=== PATIENT | female | born 1960 | race African-American/Black ===

== ENCOUNTER 2016-11-23 18:25 | Inpatient (IN) | payer MEDICARE, MEDICAID ==
[2016-11-23 18:36] VITALS: BP 123/83
--- NOTE | 2016-11-23 21:20 | History & Physical ---
ADMIT DATE: 11/23/2016 HISTORY OF PRESENT ILLNESS: This patient was admitted today. A 56-year-old female patient. The patient came in from [facility], history of dehydration, anorexia, refusal to eat, adult failure to thrive. The patient had acute kidney injury, which was treated. The patient was in catatonic state and schizophrenia, and also has a history of hypertension, was admitted. Dr. Ramos kindly asked me to see this patient for a history and physical. Difficult to obtain any history from the patient, all the data were obtained from the previous charts. The patient's vital signs seem to be stable. PAST MEDICAL HISTORY: As noted above, history of hypertension, adult failure to thrive patient. PHYSICAL EXAMINATION: HEENT: Normocephalic. Pupils equal, reactive to light. NECK: Supple, nontender. LUNGS: Clear. CARDIOVASCULAR SYSTEM: S1, S2 heard. ABDOMEN: Soft. Bowel sounds are heard. CENTRAL NERVOUS SYSTEM: Grossly normal. DIAGNOSES: Acute psychosis, schizoaffective disorder, catatonic state, medical problems included status acute kidney injury, history of hypertension, and adult failure to thrive. I will follow along with Dr. Fuentes and we will labs. JOB# [id number]
[2016-11-23] MEDS ORDERED: Magnesium Hydroxide (MOM) 30 mL UDC PO PRN (21:27)
--- NOTE | 2016-11-24 04:34 | Admit Criteria Form ---
Admit Criteria Forms - Admit Criteria Diagnosis: PSYCHIATRIC DISORDERS (Place 'X' for any and all applicable criteria): Ongoing inpatient care may be needed for 1 or more of the following(1)(2)(3)(4)( 6)(7)(8): [ ]I. Danger to self or others not manageable at lower level of care. [ ]II. Grave disability (eg, inability to perform self care necessary at lower level of care) [ ]III. Agitation or inappropriate behavior interfering with care for primary condition (eg, attempting to discontinue lines or drains prematurely, unable to cooperate with respiratory care) [X]IV. Severe disability or disorder indicated by ALL of the following: [X]a) Severe behavioral health disorder-related symptoms or condition indicated by 1 or more of the following: [ ]i) Severe problem with cognition, memory, judgment, or impulse control [X]ii) Severe clinical manifestations (eg, hallucinations, delusions, other acute psychotic symptoms, zenon, extreme agitation or anxiety) [X]b) Patient management at lower level of care is not feasible until acute intervention or modification is initiated. Extended stay beyond goal length of stay for the primary condition may be needed until ALLof the following are present(1)(2)(3)(4)(7)81)(23): [ ]a) Danger to self or others is absent or manageable at lower level of care [ ]b) Behavior crisis management, including physical or chemical restraints, is required and is not available at a lower level of care. [ ]c) Behavioral symptoms (e.g., agitation, somnolence, inappropriate behavior) are present, and are not manageable at a lower level of care. [ ]d) Patient cannot understand follow-up treatment and crisis plan. [ ]e) Provider and supports are sufficiently available at lower level of care. [ ]f) Patient can participate (e.g., verify absence of plan for harm) and is in needed of monitoring. The original [facility] content created by [facility] has been revised. The portions of the content which have been revised are identified through the use of italic text or in bold, and [facility] has neither reviewed nor approved the modified material. All other unmodified content is copyright [facility]. Please see references footnoted in the original [facility] edition 2017
[2016-11-24 07:28] LABS: ALB/GLOB RATIO 1.6 (1.0-1.8); ALKALINE PHOSPHATASE 59 U/L (34-104); ANION GAP 5.5 (7.0-16.0); BILIRUBIN,TOTAL 0.6 mg/dL (0.3-1.0); BUN - UREA NITROGEN 17 mg/dL (7-25); BUN/CREATININE RATIO 21.3; CALCIUM SERUM 10.2 mg/dL (8.6-10.3); CARBON DIOXIDE 26.2 mEq/L (21.0-31.0); CHLORIDE 112 mEq/L (98-107); CREATININE - SERUM 0.8 mg/dL (0.6-1.2); GLUCOSE 103 mg/dL (70-105); POTASSIUM SERUM 3.7 mEq/L (3.5-5.1); SGOT 25 U/L (13-39); SGPT/ALT 55 U/L (7-52); SODIUM SERUM 140 mEq/L (136-145)
--- NOTE | 2016-11-24 09:57 | Diagnostic Imaging Report ---
Portable chest x-ray HISTORY: Cough The heart size is difficult to assess with portable technique, but appears generous. No acute focal pulmonary processes. No evidence of pleural fluid. IMPRESSION: No acute pulmonary processes
--- NOTE | 2016-11-24 21:56 | Psychosocial Evaluation ---
DATE OF SERVICE: 11/24/2016 CHIEF COMPLAINT: "I have been depressed." HISTORY OF PRESENT ILLNESS: The patient is a 56-year-old female who was transferred to the hospital from Hospital because of increased depression and because of suicidal ideations. The patient has been feeling severely depressed and has been feeling hopeless and helpless. The patient also has been having lack of motivations and lack of energy. The patient also said that she has been hearing voices telling her different things. She also has been interacting minimally with peers and with others. Also, during interview, the patient seems to be distracted and seems to be responding to stimuli. The patient admitted that she has been hearing voices and she has been having difficulty with her sleep and she has lacking of energy. She also has been feeling hopeless and helpless. PAST PSYCHIATRIC HISTORY: The patient said that she has history of multiple psychiatric hospitalizations for treatment of depression, but also the patient seems to have a history of schizophrenia. PAST MEDICAL HISTORY: The patient said that she has hypertension. FAMILY HISTORY: The patient denies. SOCIAL HISTORY: The patient said that she lives with her boyfriend. She denies any alcohol or any street drug use. The patient said that she has 3 children. She said that she lives with her boyfriend and they are getting along with no problems. She denies any history of abuse or legal issues. ALLERGIES: CODEINE. MENTAL STATUS EXAMINATION: The patient seems to be older than her stated age. Anxious. Disheveled. Psychomotor retardation and very slow in her responses. The patient denies any visual hallucinations, but admits to auditory hallucinations and being paranoid. The patient denies suicidal or homicidal ideations. The patient is alert and oriented to time, place, person, and situation. Intact immediate memory and she remembered the events happened prior to her admission. Intact recent memory and she remembered the events happened two weeks ago. Intact remote memory and she remembered events happened two weeks ago. Intact remote memory and she remembered her date. Fair insight. Judgment is questionable. ASSESSMENT: PRIMARY DIAGNOSIS: Chronic paranoid schizophrenia with acute exacerbation. MEDICAL DIAGNOSIS: Hypertension. SECONDARY DIAGNOSIS: Depressive disorder, not otherwise specified. TREATMENT PLAN: We will monitor the patient's behavior and her condition closely. We will increase Lexapro and Celexa and follow up. ESTIMATED LENGTH OF STAY: 7-10 days. THE PATIENT'S STRENGTHS AND WEAKNESSES: The patient's strength is not clear at this time. Weaknesses are her ineffective coping and her psychosis. AFTER DISCHARGE PLAN: Outpatient treatment and followup will continue as an outpatient, and the patient might need placement, depends on further evaluation. JOB# [id number]
--- NOTE | 2016-11-25 00:59 | Progress Notes ---
DATE: 11/24/2016 SUBJECTIVE: The patient was seen in her room, lying in the bed. The patient's mood is guarded at this time. Per patient, she does not want to talk to anyone at this time. Otherwise, the patient appears to be comfortable, in no acute distress. OBJECTIVE. VITAL SIGNS: Temperature 98.5, heart rate of 81, blood pressure 119/81, respirations 20, 97% on room air. HEENT: Head is atraumatic and normocephalic. Eyes: Bilateral conjunctivae are clear. Bilateral pupils are equally round and reactive. NECK: Supple. No JVD. CARDIOVASCULAR: S1 and S2, without murmur. PULMONARY: Clear to auscultation. GASTROINTESTINAL: Soft and nontender without guarding. MUSCULOSKELETAL: No edema, no clubbing, no cyanosis. ASSESSMENT: 1. Psychosis. 2. History of schizoaffective disorder. 3. Hypertension. 4. Anxiety. PLAN: We will continue to keep the patient as inpatient in Geropsych Unit. We will follow up with a psychiatrist to monitor the patient's behavior. Treatment plans were discussed with Dr. Lei. JOB# [id number]
--- NOTE | 2016-11-25 21:46 | Progress Notes ---
DATE: 11/25/2016 SUBJECTIVE: Chart reviewed and the patient interviewed. Also discussed the patient's condition with the staff and reviewed records and labs. The patient is still severely depressed. The patient also is still showing psychomotor retardation. She is also complaining of lack of energy and lack of medications and depression. The patient also did not eat her breakfast this morning and she was staying on her bed all the time. She states feeling hopeless and helpless. She also reported auditory hallucinations. ASSESSMENT: The patient is still psychotic and severely depressed. TREATMENT PLAN: We will continue to monitor her behavior and her condition closely. Also, continue adjusting psychotropic medications and working on her ineffective ____ and follow up closely. [facility]# [id number]
--- NOTE | 2016-11-26 08:40 | General Progress Note ---
Subjective - Review of Systems Events since last encounter: no change patient still depressed , keeps to self Objective - Results Result Diagrams: 11/24/16 06:42 Recent Labs: Laboratory Last Values Sodium 140 mEq/L (136-145) 11/24/16 06:42 Potassium 3.7 mEq/L (3.5-5.1) 11/24/16 06:42 Chloride 112 mEq/L (98-107) H 11/24/16 06:42 Carbon Dioxide 26.2 mEq/L (21.0-31.0) 11/24/16 06:42 Anion Gap 5.5 (7.0-16.0) L 11/24/16 06:42 BUN 17 mg/dL (7-25) 11/24/16 06:42 Creatinine 0.8 mg/dL (0.6-1.2) 11/24/16 06:42 Est GFR ( Amer) > 60.0 ml/min (>90) 11/24/16 06:42 Est GFR (Non-Af Amer) > 60.0 ml/min 11/24/16 06:42 BUN/Creatinine Ratio 21.3 11/24/16 06:42 Glucose 103 mg/dL (70-105) 11/24/16 06:42 POC Glucose 96 MG/DL (70 - 105) 11/23/16 23:27 Calcium 10.2 mg/dL (8.6-10.3) 11/24/16 06:42 Total Bilirubin 0.6 mg/dL (0.3-1.0) 11/24/16 06:42 AST 25 U/L (13-39) 11/24/16 06:42 ALT 55 U/L (7-52) H 11/24/16 06:42 Alkaline Phosphatase 59 U/L (34-104) 11/24/16 06:42 Total Protein 6.4 gm/dL (6.0-8.3) 11/24/16 06:42 Albumin 3.9 gm/dL (3.7-5.3) 11/24/16 06:42 Globulin 2.5 gm/dL 11/24/16 06:42 Albumin/Globulin Ratio 1.6 (1.0-1.8) 11/24/16 06:42 - Physical Exam Vitals and I&O: Vital Signs Temp 98.2 F 11/26/16 06:06 Pulse 76 11/26/16 08:25 Resp 20 11/26/16 06:06 BP 134/93 11/26/16 08:26 Pulse Ox 92 11/26/16 06:06 Intake & Output 11/25/16 11/26/16 11/26/16 18:59 06:59 18:59 Intake Total 1400 Balance 1400 Intake: Oral 1400 Other: # Voids 3 # Bowel Movements 0 Active Medications: Current Medications Acetaminophen (Tylenol) 650 mg PO Q8HR PRN PRN Reason: mild to moderate pain Stop: 01/22/17 21:26 Citalopram Hydrobromide (Celexa) 20 mg PO DAILY [facility] Stop: 01/23/17 08:59 Last Admin: 11/26/16 08:25 Dose: 20 mg Hydrochlorothiazide (Hctz) 12.5 mg PO DAILY [facility] Stop: 01/23/17 08:59 Last Admin: 11/26/16 08:26 Dose: 12.5 mg Lorazepam (Ativan) 0.5 mg PO Q4HR PRN; Protocol PRN Reason: Anxiety Stop: 01/22/17 21:26 Losartan Potassium (Cozaar) 50 mg PO DAILY [facility] Stop: 01/23/17 08:59 Last Admin: 11/26/16 08:25 Dose: 50 mg Magnesium Hydroxide (Milk Of Magnesia) 30 ml PO Q72HR PRN PRN Reason: Constipation Stop: 01/22/17 21:26 Olanzapine (Zyprexa) 10 mg PO DAILY [facility] PRN Reason: Protocol Stop: 01/23/17 08:59 Last Admin: 11/26/16 08:25 Dose: 10 mg General: No acute distress Cardiovascular: Regular rate Abdomen: Bowel sounds
--- NOTE | 2016-11-26 22:30 | Progress Notes ---
DATE: 11/26/2016 SUBJECTIVE: Chart reviewed and the patient interviewed. Also, discussed the patient's condition with the staff and reviewed records and labs. The patient is still severely depressed, and she has flat affect. The patient also is still slow in her responses. The patient also still has difficulty expressing herself and her feelings because of her severe level of depression. Otherwise, the patient is cooperative with the treatment and compliant with taking her medications with no side effects of medications. ASSESSMENT: The patient is still depressed and psychotic. TREATMENT PLAN: We will continue monitoring her behavior closely. Also, we will continue Zyprexa and Lexapro same dose and continue to follow up. Also, try to get from more information regarding her treatment. [facility]# [id number]
--- NOTE | 2016-11-28 03:58 | Progress Notes ---
DATE: 11/27/2016 SUBJECTIVE: Chart reviewed and the patient interviewed. Also, discussed the patient's condition with the staff and reviewed records and labs. The patient is still having flat affect that she still seems to be suspicious and paranoid. The patient also is still actively responding to stimuli. The patient also wants to be left alone and stays by herself in her room most of the time. She also is still during interview seems to be talking to herself. She also is still reporting auditory hallucinations. Also, she is almost tearful during my interview. ASSESSMENT: The patient is still psychotic and depressed. TREATMENT PLAN: We will increase Zyprexa to 12.5 mg at ____bedtime and we will increase Celexa to 30 mg everyday. Also, continue to work on her ineffective coping and on her severe psychosis and depression. JOB# [id number]
--- NOTE | 2016-11-28 08:18 | Progress Notes ---
DATE: 11/28/2016 SUBJECTIVE: Chart reviewed and the patient interviewed. Also discussed the patient's condition with the staff and reviewed records and labs. The patient continued to be severely depressed and is still withdrawn. The patient also is still feeling hopeless and helpless. The patient also is interacting minimally with peers and with others. The patient also is still reporting auditory hallucinations and still does not want to leave her room and stays by herself most of the time. Otherwise, the patient is compliant with taking her medications with no side effects of medications. During interview, the patient is having flat affect and she seems to be preoccupied. The patient also is slow in her response. ASSESSMENT: The patient is still psychotic and depressed. TREATMENT PLAN: We will continue monitoring her behavior and her condition closely. Also, we will continue to work on her psychosis and her delusions and her paranoia. Also, we will add Wellbutrin. Also discussed with the patient the relationship with her boyfriend and "it is not good." The patient also said that she would rather be in a different place. We will check with case packer and sealer possibility of the patient going to [facility] and we will continue to follow up closely. JOB# [id number]
--- NOTE | 2016-11-29 08:55 | General Progress Note ---
Subjective - Review of Systems Events since last encounter: patient continues to feel depressed continues to hear voices stays mostly in room Objective - Results Result Diagrams: 11/24/16 06:42 Recent Labs: Laboratory Last Values Sodium 140 mEq/L (136-145) 11/24/16 06:42 Potassium 3.7 mEq/L (3.5-5.1) 11/24/16 06:42 Chloride 112 mEq/L (98-107) H 11/24/16 06:42 Carbon Dioxide 26.2 mEq/L (21.0-31.0) 11/24/16 06:42 Anion Gap 5.5 (7.0-16.0) L 11/24/16 06:42 BUN 17 mg/dL (7-25) 11/24/16 06:42 Creatinine 0.8 mg/dL (0.6-1.2) 11/24/16 06:42 Est GFR ( Amer) > 60.0 ml/min (>90) 11/24/16 06:42 Est GFR (Non-Af Amer) > 60.0 ml/min 11/24/16 06:42 BUN/Creatinine Ratio 21.3 11/24/16 06:42 Glucose 103 mg/dL (70-105) 11/24/16 06:42 POC Glucose 96 MG/DL (70 - 105) 11/23/16 23:27 Calcium 10.2 mg/dL (8.6-10.3) 11/24/16 06:42 Total Bilirubin 0.6 mg/dL (0.3-1.0) 11/24/16 06:42 AST 25 U/L (13-39) 11/24/16 06:42 ALT 55 U/L (7-52) H 11/24/16 06:42 Alkaline Phosphatase 59 U/L (34-104) 11/24/16 06:42 Total Protein 6.4 gm/dL (6.0-8.3) 11/24/16 06:42 Albumin 3.9 gm/dL (3.7-5.3) 11/24/16 06:42 Globulin 2.5 gm/dL 11/24/16 06:42 Albumin/Globulin Ratio 1.6 (1.0-1.8) 11/24/16 06:42 - Physical Exam Vitals and I&O: Vital Signs Temp 98.3 F 11/29/16 07:11 Pulse 72 11/29/16 07:11 Resp 19 11/29/16 07:11 BP 120/78 11/29/16 07:11 Pulse Ox 99 11/29/16 07:11 Intake & Output 11/28/16 11/29/16 11/29/16 18:59 06:59 18:59 Intake Total 1000 Balance 1000 Weight (lbs) 106.912 kg Intake: Oral 1000 Other: # Voids 3 1 # Bowel Movements 1 Active Medications: Current Medications Acetaminophen (Tylenol) 650 mg PO Q8HR PRN PRN Reason: mild to moderate pain Stop: 01/22/17 21:26 Bupropion HCl (Wellbutrin) 100 mg PO DAILY [facility] PRN Reason: Protocol Stop: 01/27/17 08:59 Last Admin: 11/28/16 12:01 Dose: Not Given Citalopram Hydrobromide (Celexa) 20 mg PO DAILY [facility] Stop: 01/23/17 08:59 Last Admin: 11/28/16 08:48 Dose: 20 mg Hydrochlorothiazide (Hctz) 12.5 mg PO DAILY [facility] Stop: 01/23/17 08:59 Last Admin: 11/28/16 08:49 Dose: 12.5 mg Lorazepam (Ativan) 0.5 mg PO Q4HR PRN; Protocol PRN Reason: Anxiety Stop: 01/22/17 21:26 Losartan Potassium (Cozaar) 50 mg PO DAILY [facility] Stop: 01/23/17 08:59 Last Admin: 11/28/16 08:50 Dose: 50 mg Magnesium Hydroxide (Milk Of Magnesia) 30 ml PO Q72HR PRN PRN Reason: Constipation Stop: 01/22/17 21:26 Olanzapine 10 mg/ Olanzapine 2 (.5 mg) 12.5 mg PO DAILY [facility] Stop: 01/26/17 08:59 Last Admin: 11/28/16 08:47 Dose: 12.5 mg General: No acute distress Cardiovascular: Regular rate Abdomen: Bowel sounds Assessment/Plan - Problem List Patient Problems: All Active Problems Depression (Acute) 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) - Plan Plan: as per psych as problems arise will monitor Nutritional Asmnt/Malnutr-PDOC - Dietary Evaluation Malnutrition Findings (Please click <Entered> for more info): Nutritional Asmnt/Malnutrition Start: 11/28/16 16: 18 Text: Status: Complete Freq: Document 11/28/16 16:19 GSECTOR (Rec: 11/28/16 16:32 [email or web address] [email or web address]) Nutritional Asmnt/Malnutrition Patient General Information Nutritional Screening Moderate Risk Screening Diagnosis Chronic paranoid schizophrenia with acute exacerbation, depressive disorder Pertinent Medical Hx/Surgical Hx Dehydration, anorexia, refusal to eat, adult failure ot thrive, acute kidney injury, HTN Subjective Information 56 year old female from home. Pt was resting in bed with blanket up to neck, unable to perform physical assessment. Pt was pleasant but appeared guarded. Pt reported allergies to seafood, FNS notified. Teeth intact, denied difficulties eating. Avg PO intake 73% of meals since adm, meeting nutritional needs. Pt reprot UBW 190lb vs bedscale CBW 235.7lb today. Pt was unsure of recent weight changes. Current Diet Order/ Nutrition Support Regular, BONNIE Pertinent Medications MOM Pertinent Labs Reviewed. Nutritional Hx/Data Height 1.73 m Height (Calculated Centimeters) 172.7 Current Weight (lbs) 106.912 kg Weight (Calculated Kilograms) 106.9 Weight (Calculated Grams) 374229.7 Usual body Weight (lbs) 190 [place] Body Weight 140 Weight Status Obese GI Symptoms Food Allergies Yes Cultural/Ethnic/Cheondoism Belief Pt reported being allergic to seafood all kind, denied any other allergies. Skin Integrity/Comment: Robe Correa. Skin intact. Current %PO Fair (50-74%) Estimated Nutritional Goals Calories/Kcals/Kg IBW 140lb/63.6kg due to questionable weight difference between IBW vs UBW Kcals Calculated 1590-1908kcal (25-30kcal/kg) Protein g/kg: IBW Protein Calculated 64g (1g/kg) Fluid: ml 1590-1908ml (1ml/kcal) Nutritional Problem 1. Problem Problem No nutritional problem at this time. Intervention/Recommendation Comments 1. Continue with current diet order. Avg PO intake is adequate. 2. Obtain weight if able. pt report UBW 190lb vs. CBW bedscale 235.7lb, questionable difference. Expected Outcomes/Goals Expected Outcomes/Goals 1. PO intake continue to meet at least 75% of estimated nutritional needs.
--- NOTE | 2016-11-29 22:40 | Progress Notes ---
DATE: 11/29/2016 SUBJECTIVE: Chart reviewed and the patient interviewed. Also, discussed the patient's condition with the staff and reviewed records and labs. The patient is still severely depressed and is still withdrawn. The patient also is interacting minimally with peers and with others. The patient also is still reporting auditory hallucinations and still hearing voices "telling me different things." She also wants to stay by herself in her room most of the time. She also did continue to express anger towards her boyfriend. Otherwise, the patient is cooperative and compliant with taking her medications with no side effects of medications. ASSESSMENT: The patient is still depressed and psychotic. TREATMENT PLAN: We will continue monitoring her behavior and her condition closely. Also, I have started the patient yesterday on Wellbutrin with no side effects. We will continue same dose and we will continue to follow up closely. JOB# [id number]
[2016-11-30] MEDS: OLANZapine 10 MG, OLANZapine 5 MG PO SCH (08:45)
--- NOTE | 2016-11-30 08:49 | General Progress Note ---
Subjective - Review of Systems Events since last encounter: patient still confused Objective - Results Result Diagrams: 11/24/16 06:42 Recent Labs: Laboratory Last Values Sodium 140 mEq/L (136-145) 11/24/16 06:42 Potassium 3.7 mEq/L (3.5-5.1) 11/24/16 06:42 Chloride 112 mEq/L (98-107) H 11/24/16 06:42 Carbon Dioxide 26.2 mEq/L (21.0-31.0) 11/24/16 06:42 Anion Gap 5.5 (7.0-16.0) L 11/24/16 06:42 BUN 17 mg/dL (7-25) 11/24/16 06:42 Creatinine 0.8 mg/dL (0.6-1.2) 11/24/16 06:42 Est GFR ( Amer) > 60.0 ml/min (>90) 11/24/16 06:42 Est GFR (Non-Af Amer) > 60.0 ml/min 11/24/16 06:42 BUN/Creatinine Ratio 21.3 11/24/16 06:42 Glucose 103 mg/dL (70-105) 11/24/16 06:42 POC Glucose 96 MG/DL (70 - 105) 11/23/16 23:27 Calcium 10.2 mg/dL (8.6-10.3) 11/24/16 06:42 Total Bilirubin 0.6 mg/dL (0.3-1.0) 11/24/16 06:42 AST 25 U/L (13-39) 11/24/16 06:42 ALT 55 U/L (7-52) H 11/24/16 06:42 Alkaline Phosphatase 59 U/L (34-104) 11/24/16 06:42 Total Protein 6.4 gm/dL (6.0-8.3) 11/24/16 06:42 Albumin 3.9 gm/dL (3.7-5.3) 11/24/16 06:42 Globulin 2.5 gm/dL 11/24/16 06:42 Albumin/Globulin Ratio 1.6 (1.0-1.8) 11/24/16 06:42 - Physical Exam Vitals and I&O: Vital Signs Temp 98.2 F 11/30/16 06:49 Pulse 89 11/30/16 06:49 Resp 19 11/30/16 06:49 BP 130/76 11/30/16 06:49 Pulse Ox 98 11/30/16 06:49 Intake & Output 11/29/16 11/30/16 11/30/16 18:59 06:59 18:59 Intake Total 120 Balance 120 Intake: Oral 120 Other: # Voids 1 2 Stool Characteristics Formed Active Medications: Current Medications Acetaminophen (Tylenol) 650 mg PO Q8HR PRN PRN Reason: mild to moderate pain Stop: 01/22/17 21:26 Bupropion HCl (Wellbutrin) 150 mg PO DAILY SHAILESH PRN Reason: Protocol Stop: 01/27/17 08:59 Citalopram Hydrobromide (Celexa) 20 mg PO DAILY [facility] Stop: 01/23/17 08:59 Last Admin: 11/29/16 09:02 Dose: 20 mg Hydrochlorothiazide (Hctz) 12.5 mg PO DAILY [facility] Stop: 01/23/17 08:59 Last Admin: 11/29/16 09:04 Dose: 12.5 mg Lorazepam (Ativan) 0.5 mg PO Q4HR PRN; Protocol PRN Reason: Anxiety Stop: 01/22/17 21:26 Losartan Potassium (Cozaar) 50 mg PO DAILY [facility] Stop: 01/23/17 08:59 Last Admin: 11/29/16 09:03 Dose: 50 mg Magnesium Hydroxide (Milk Of Magnesia) 30 ml PO Q72HR PRN PRN Reason: Constipation Stop: 01/22/17 21:26 Olanzapine 10 mg/ Olanzapine 5 (mg) 15 mg PO DAILY [facility] Stop: 01/29/17 08:59 General: No acute distress Neck: Supple Abdomen: Bowel sounds Assessment/Plan - Problem List Patient Problems: All Active Problems Depression (Acute) 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) - Plan Plan: as per psych as problems arise will monitor Nutritional Asmnt/Malnutr-PDOC - Dietary Evaluation Malnutrition Findings (Please click <Entered> for more info): Nutritional Asmnt/Malnutrition Start: 11/28/16 16: 18 Text: Status: Complete Freq: Document 11/28/16 16:19 GSUN (Rec: 11/28/16 16:32 GSUN [email or web address]) Nutritional Asmnt/Malnutrition Patient General Information Nutritional Screening Moderate Risk Screening Diagnosis Chronic paranoid schizophrenia with acute exacerbation, depressive disorder Pertinent Medical Hx/Surgical Hx Dehydration, anorexia, refusal to eat, adult failure ot thrive, acute kidney injury, HTN Subjective Information 56 year old female from home. Pt was resting in bed with blanket up to neck, unable to perform physical assessment. Pt was pleasant but appeared guarded. Pt reported allergies to seafood, FNS notified. Teeth intact, denied difficulties eating. Avg PO intake 73% of meals since adm, meeting nutritional needs. Pt reprot UBW 190lb vs bedscale CBW 235.7lb today. Pt was unsure of recent weight changes. Current Diet Order/ Nutrition Support Regular, BONNIE Pertinent Medications MOM Pertinent Labs Reviewed. Nutritional Hx/Data Height 1.73 m Height (Calculated Centimeters) 172.7 Current Weight (lbs) 106.912 kg Weight (Calculated Kilograms) 106.9 Weight (Calculated Grams) 727328.7 Usual body Weight (lbs) 190 [place] Body Weight 140 Weight Status Obese GI Symptoms Food Allergies Yes Cultural/Ethnic/Religion Belief Pt reported being allergic to seafood all kind, denied any other allergies. Skin Integrity/Comment: Robe 22. Skin intact. Current %PO Fair (50-74%) Estimated Nutritional Goals Calories/Kcals/Kg IBW 140lb/63.6kg due to questionable weight difference between IBW vs UBW Kcals Calculated 1590-1908kcal (25-30kcal/kg) Protein g/kg: IBW Protein Calculated 64g (1g/kg) Fluid: ml 1590-1908ml (1ml/kcal) Nutritional Problem 1. Problem Problem No nutritional problem at this time. Intervention/Recommendation Comments 1. Continue with current diet order. Avg PO intake is adequate. 2. Obtain weight if able. pt report UBW 190lb vs. CBW bedscale 235.7lb, questionable difference. Expected Outcomes/Goals Expected Outcomes/Goals 1. PO intake continue to meet at least 75% of estimated nutritional needs.
--- NOTE | 2016-11-30 21:17 | Discharge Summary ---
DATE OF DISCHARGE: REASON FOR ADMISSION: The patient was admitted for the acute psychosis, schizoaffective disorder, catatonic state, and history of kidney injury, and history of hypertension, and adult failure to thrive. HOSPITAL COURSE: The patient was initially admitted to the medical floor and the patient stabilized. The patient was in a stable condition, was transferred to Geropsych unit. I will be following along with Dr. Ramos. [facility]# [id number]
--- NOTE | 2016-12-01 00:04 | Progress Notes ---
DATE: 11/30/2016 SUBJECTIVE: Chart reviewed and the patient interviewed. Also, discussed the patient's condition with the staff and reviewed records and labs. The patient is still anxious and is still actively responding to stimuli and is still severely depressed. The patient also is still talking to herself at times. The patient also is still severely depressed. The patient also talked more about her boyfriend today and she does not want to go back to live with him. She also is still having lack of motivations and lack of energy. She also is having difficulty with her mood. Otherwise, the patient is more cooperative with her treatment and she is compliant with taking her medications. No side effects of medications. ASSESSMENT: The patient is still depressed and psychotic. TREATMENT PLAN: We will continue to monitor her behavior and her condition closely. Also, discussed with [facility] to interview the patient and to possibility of placing the patient there and they will do so and waiting further outcome. At the same time, we will increase Wellbutrin to 150 mg 2 every morning and we will continue to follow up. [facility]# [id number]
[2016-12-01] MEDS: OLANZapine 10 MG, OLANZapine 5 MG PO SCH (08:20)
[2016-12-01] MEDS: NYSTATIN 100000 UNITS/GM POWD TP PRN (17:13)
--- NOTE | 2016-12-01 20:02 | Progress Notes ---
DATE: 12/01/2016 SUBJECTIVE: The patient seen, chart reviewed, discussed with staff. The patient is under the care of Dr. Ramos, refusing interview today. She is currently in the hospital due to severe depression, voices, psychosis, still seems distracted, internally preoccupied, still with evidence of psychosis, remains isolative, depressed, withdrawn, poor attention to ADLs, recent dose adjustment of Zyprexa to 15 mg since yesterday, seems to be tolerating well. The patient is also on Wellbutrin. ASSESSMENT: The patient remains symptomatic, internally preoccupied, not ready for discharge. PLAN: Given recent dose, increased the Zyprexa, we will continue with 15 mg also we will titrate over the next few days. JOB# [id number]
--- NOTE | 2016-12-02 09:20 | General Progress Note ---
Subjective - Review of Systems Events since last encounter: patient depressed and psychotic Objective - Results Result Diagrams: 11/24/16 06:42 Recent Labs: Laboratory Last Values Sodium 140 mEq/L (136-145) 11/24/16 06:42 Potassium 3.7 mEq/L (3.5-5.1) 11/24/16 06:42 Chloride 112 mEq/L (98-107) H 11/24/16 06:42 Carbon Dioxide 26.2 mEq/L (21.0-31.0) 11/24/16 06:42 Anion Gap 5.5 (7.0-16.0) L 11/24/16 06:42 BUN 17 mg/dL (7-25) 11/24/16 06:42 Creatinine 0.8 mg/dL (0.6-1.2) 11/24/16 06:42 Est GFR ( Amer) > 60.0 ml/min (>90) 11/24/16 06:42 Est GFR (Non-Af Amer) > 60.0 ml/min 11/24/16 06:42 BUN/Creatinine Ratio 21.3 11/24/16 06:42 Glucose 103 mg/dL (70-105) 11/24/16 06:42 POC Glucose 96 MG/DL (70 - 105) 11/23/16 23:27 Calcium 10.2 mg/dL (8.6-10.3) 11/24/16 06:42 Total Bilirubin 0.6 mg/dL (0.3-1.0) 11/24/16 06:42 AST 25 U/L (13-39) 11/24/16 06:42 ALT 55 U/L (7-52) H 11/24/16 06:42 Alkaline Phosphatase 59 U/L (34-104) 11/24/16 06:42 Total Protein 6.4 gm/dL (6.0-8.3) 11/24/16 06:42 Albumin 3.9 gm/dL (3.7-5.3) 11/24/16 06:42 Globulin 2.5 gm/dL 11/24/16 06:42 Albumin/Globulin Ratio 1.6 (1.0-1.8) 11/24/16 06:42 - Physical Exam Vitals and I&O: Vital Signs Temp 98 F 12/01/16 20:11 Pulse 73 12/01/16 20:11 Resp 19 12/01/16 20:11 BP 105/57 12/01/16 20:11 Pulse Ox 96 12/01/16 20:11 Intake & Output 12/01/16 12/02/16 12/02/16 18:59 06:59 18:59 Intake Total 950 240 Balance 950 240 Intake: Oral 950 240 Other: # Voids 4 1 # Bowel Movements 2 Active Medications: Current Medications Acetaminophen (Tylenol) 650 mg PO Q8HR PRN PRN Reason: mild to moderate pain Stop: 01/22/17 21:26 Last Admin: 11/30/16 16:51 Dose: 650 mg Bupropion HCl (Wellbutrin) 150 mg PO DAILY [facility] PRN Reason: Protocol Stop: 01/27/17 08:59 Last Admin: 12/01/16 08:20 Dose: 150 mg Citalopram Hydrobromide (Celexa) 20 mg PO DAILY [facility] Stop: 01/23/17 08:59 Last Admin: 12/01/16 08:21 Dose: 20 mg Hydrochlorothiazide (Hctz) 12.5 mg PO DAILY [facility] Stop: 01/23/17 08:59 Last Admin: 12/01/16 08:21 Dose: 12.5 mg Lorazepam (Ativan) 0.5 mg PO Q4HR PRN; Protocol PRN Reason: Anxiety Stop: 01/22/17 21:26 Losartan Potassium (Cozaar) 50 mg PO DAILY [facility] Stop: 01/23/17 08:59 Last Admin: 12/01/16 08:22 Dose: 50 mg Magnesium Hydroxide (Milk Of Magnesia) 30 ml PO Q72HR PRN PRN Reason: Constipation Stop: 01/22/17 21:26 Nystatin (Nystop) 0 units TP BID PRN PRN Reason: REDNESS Stop: 01/29/17 17:10 Last Admin: 12/01/16 17:13 Dose: 1 units Olanzapine (Zyprexa) 20 mg PO DAILY [facility] Stop: 01/31/17 07:27 General: No acute distress Lungs: Clear to auscultation Abdomen: Bowel sounds Assessment/Plan - Problem List Patient Problems: All Active Problems Depression (Acute) 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) - Plan Plan: as per psych as problems arise will monitor Nutritional Asmnt/Malnutr-PDOC - Dietary Evaluation Malnutrition Findings (Please click <Entered> for more info): Nutritional Asmnt/Malnutrition Start: 11/28/16 16: 18 Text: Status: Complete Freq: Document 11/28/16 16:19 GSUN (Rec: 11/28/16 16:32 GSUN [email or web address]) Nutritional Asmnt/Malnutrition Patient General Information Nutritional Screening Moderate Risk Screening Diagnosis Chronic paranoid schizophrenia with acute exacerbation, depressive disorder Pertinent Medical Hx/Surgical Hx Dehydration, anorexia, refusal to eat, adult failure ot thrive, acute kidney injury, HTN Subjective Information 56 year old female from home. Pt was resting in bed with blanket up to neck, unable to perform physical assessment. Pt was pleasant but appeared guarded. Pt reported allergies to seafood, FNS notified. Teeth intact, denied difficulties eating. Avg PO intake 73% of meals since adm, meeting nutritional needs. Pt reprot UBW 190lb vs bedscale CBW 235.7lb today. Pt was unsure of recent weight changes. Current Diet Order/ Nutrition Support Regular, BONNIE Pertinent Medications MOM Pertinent Labs Reviewed. Nutritional Hx/Data Height 1.73 m Height (Calculated Centimeters) 172.7 Current Weight (lbs) 106.912 kg Weight (Calculated Kilograms) 106.9 Weight (Calculated Grams) 650901.7 Usual body Weight (lbs) 190 [place] Body Weight 140 Weight Status Obese GI Symptoms Food Allergies Yes Cultural/Ethnic/Yazidi Belief Pt reported being allergic to seafood all kind, denied any other allergies. Skin Integrity/Comment: Robe 22. Skin intact. Current %PO Fair (50-74%) Estimated Nutritional Goals Calories/Kcals/Kg IBW 140lb/63.6kg due to questionable weight difference between IBW vs UBW Kcals Calculated 1590-1908kcal (25-30kcal/kg) Protein g/kg: IBW Protein Calculated 64g (1g/kg) Fluid: ml 1590-1908ml (1ml/kcal) Nutritional Problem 1. Problem Problem No nutritional problem at this time. Intervention/Recommendation Comments 1. Continue with current diet order. Avg PO intake is adequate. 2. Obtain weight if able. pt report UBW 190lb vs. CBW bedscale 235.7lb, questionable difference. Expected Outcomes/Goals Expected Outcomes/Goals 1. PO intake continue to meet at least 75% of estimated nutritional needs.
--- NOTE | 2016-12-02 21:48 | Progress Notes ---
DATE: 12/02/2016 SUBJECTIVE: The patient seen, chart reviewed, discussed with staff. The patient is currently in the hospital, depression, suicidal, hopeless, despairing. On [id number], the patient notes in whisper she feels "okay." Appearing withdrawn, states she is in the hospital for "dehydration," still appearing to respond to internal stimuli, distraught, psychological distress, seems quite distracted, refusing answering most questions, ____. Eating with prompting, ADLs are poor, only with prompting, mostly in her bed, paranoid, delusional, unable to care for basic food, clothing and intermediate at this time. ASSESSMENT: The patient remains depressed, withdrawn, still with evidence of overt psychosis. PLAN: Continue to monitor. Given the patient's current symptoms, there are continued concerns. She is currently on Celexa as well as olanzapine. I will increase dosage of Zyprexa 20 mg to target residual psychotic symptoms. [facility]# [id number]
--- NOTE | 2016-12-03 00:40 | Progress Notes ---
DATE: 12/01/2016 SUBJECTIVE: The patient was seen in her room, lying on the bed. The patient is asleep, but easily arousable. The patient is in no acute distress. The patient appears to be comfortable. According to the staff, the patient has still episodes of isolating herself with minimal interaction to others. The patient admits to still having auditory hallucinations. Otherwise, the patient takes her medication regularly. OBJECTIVE: VITAL SIGNS: Temperature 98.4, heart rate 71, blood pressure 108/67, respirations 19, 100% on room air. HEENT: Head is atraumatic, normocephalic. Eyes, bilateral conjunctivae are clear. Bilateral pupils are equally round and reactive. NECK: Supple. No JVD. CARDIOVASCULAR: S1 and S2, without murmur. PULMONARY: Clear to auscultation. GASTROINTESTINAL: Soft and nontender without guarding. Positive bowel sounds. MUSCULOSKELETAL: No edema, no clubbing, no cyanosis. ASSESSMENT: 1. Psychosis. 2. History of schizoaffective disorder. 3. Anxiety. 4. Hypertension. PLAN: We will continue to keep the patient in Geropsych Unit. We will follow up with the psychiatrist to monitor the patient's condition and possible medication adjustment. Treatment plans were discussed with Dr. Lei. [facility]# [id number]
--- NOTE | 2016-12-03 16:04 | General Progress Note ---
Subjective - Review of Systems Events since last encounter: patient remains depressed Objective - Results Result Diagrams: 11/24/16 06:42 Recent Labs: Laboratory Last Values Sodium 140 mEq/L (136-145) 11/24/16 06:42 Potassium 3.7 mEq/L (3.5-5.1) 11/24/16 06:42 Chloride 112 mEq/L (98-107) H 11/24/16 06:42 Carbon Dioxide 26.2 mEq/L (21.0-31.0) 11/24/16 06:42 Anion Gap 5.5 (7.0-16.0) L 11/24/16 06:42 BUN 17 mg/dL (7-25) 11/24/16 06:42 Creatinine 0.8 mg/dL (0.6-1.2) 11/24/16 06:42 Est GFR ( Amer) > 60.0 ml/min (>90) 11/24/16 06:42 Est GFR (Non-Af Amer) > 60.0 ml/min 11/24/16 06:42 BUN/Creatinine Ratio 21.3 11/24/16 06:42 Glucose 103 mg/dL (70-105) 11/24/16 06:42 POC Glucose 96 MG/DL (70 - 105) 11/23/16 23:27 Calcium 10.2 mg/dL (8.6-10.3) 11/24/16 06:42 Total Bilirubin 0.6 mg/dL (0.3-1.0) 11/24/16 06:42 AST 25 U/L (13-39) 11/24/16 06:42 ALT 55 U/L (7-52) H 11/24/16 06:42 Alkaline Phosphatase 59 U/L (34-104) 11/24/16 06:42 Total Protein 6.4 gm/dL (6.0-8.3) 11/24/16 06:42 Albumin 3.9 gm/dL (3.7-5.3) 11/24/16 06:42 Globulin 2.5 gm/dL 11/24/16 06:42 Albumin/Globulin Ratio 1.6 (1.0-1.8) 11/24/16 06:42 - Physical Exam Vitals and I&O: Vital Signs Temp 97.6 F 12/03/16 15:42 Pulse 79 12/03/16 15:42 Resp 19 12/03/16 15:42 BP 105/70 12/03/16 15:42 Pulse Ox 96 12/03/16 15:42 Intake & Output 12/02/16 12/03/16 12/03/16 18:59 06:59 18:59 Intake Total 950 240 Balance 950 240 Intake: Oral 950 240 Other: # Voids 4 1 # Bowel Movements 1 0 Stool Characteristics Formed Active Medications: Current Medications Acetaminophen (Tylenol) 650 mg PO Q8HR PRN PRN Reason: mild to moderate pain Stop: 01/22/17 21:26 Last Admin: 11/30/16 16:51 Dose: 650 mg Bupropion HCl (Wellbutrin) 150 mg PO DAILY [facility]AIL[facility] PRN Reason: Protocol Stop: 01/27/17 08:59 Last Admin: 12/03/16 08:41 Dose: 150 mg Citalopram Hydrobromide (Celexa) 20 mg PO DAILY [facility] Stop: 01/23/17 08:59 Last Admin: 12/03/16 08:40 Dose: 20 mg Hydrochlorothiazide (Hctz) 12.5 mg PO DAILY [facility] Stop: 01/23/17 08:59 Last Admin: 12/03/16 08:38 Dose: 12.5 mg Lorazepam (Ativan) 0.5 mg PO Q4HR PRN; Protocol PRN Reason: Anxiety Stop: 01/22/17 21:26 Last Admin: 12/02/16 16:52 Dose: 0.5 mg Losartan Potassium (Cozaar) 50 mg PO DAILY [facility] Stop: 01/23/17 08:59 Last Admin: 12/03/16 08:39 Dose: 50 mg Magnesium Hydroxide (Milk Of Magnesia) 30 ml PO Q72HR PRN PRN Reason: Constipation Stop: 01/22/17 21:26 Nystatin (Nystop) 0 units TP BID PRN PRN Reason: REDNESS Stop: 01/29/17 17:10 Last Admin: 12/01/16 17:13 Dose: 1 units Olanzapine (Zyprexa) 20 mg PO DAILY [facility] Stop: 01/31/17 07:27 Last Admin: 12/03/16 08:40 Dose: 20 mg General: No acute distress HEENT: Atraumatic Abdomen: Bowel sounds Assessment/Plan - Problem List Patient Problems: All Active Problems Depression (Acute) 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) - Plan Plan: as per psych as problems arise will monitor Nutritional Asmnt/Malnutr-PDOC - Dietary Evaluation Malnutrition Findings (Please click <Entered> for more info): Nutritional Asmnt/Malnutrition Start: 11/28/16 16: 18 Text: Status: Complete Freq: Document 11/28/16 16:19 GSUN (Rec: 11/28/16 16:32 GSUN [email or web address]) Nutritional Asmnt/Malnutrition Patient General Information Nutritional Screening Moderate Risk Screening Diagnosis Chronic paranoid schizophrenia with acute exacerbation, depressive disorder Pertinent Medical Hx/Surgical Hx Dehydration, anorexia, refusal to eat, adult failure ot thrive, acute kidney injury, HTN Subjective Information 56 year old female from home. Pt was resting in bed with blanket up to neck, unable to perform physical assessment. Pt was pleasant but appeared guarded. Pt reported allergies to seafood, FNS notified. Teeth intact, denied difficulties eating. Avg PO intake 73% of meals since adm, meeting nutritional needs. Pt reprot UBW 190lb vs bedscale CBW 235.7lb today. Pt was unsure of recent weight changes. Current Diet Order/ Nutrition Support Regular, BONNIE Pertinent Medications MOM Pertinent Labs Reviewed. Nutritional Hx/Data Height 1.73 m Height (Calculated Centimeters) 172.7 Current Weight (lbs) 106.912 kg Weight (Calculated Kilograms) 106.9 Weight (Calculated Grams) 736466.7 Usual body Weight (lbs) 190 [place] Body Weight 140 Weight Status Obese GI Symptoms Food Allergies Yes Cultural/Ethnic/Lutheran Belief Pt reported being allergic to seafood all kind, denied any other allergies. Skin Integrity/Comment: Robe 22. Skin intact. Current %PO Fair (50-74%) Estimated Nutritional Goals Calories/Kcals/Kg IBW 140lb/63.6kg due to questionable weight difference between IBW vs UBW Kcals Calculated 1590-1908kcal (25-30kcal/kg) Protein g/kg: IBW Protein Calculated 64g (1g/kg) Fluid: ml 1590-1908ml (1ml/kcal) Nutritional Problem 1. Problem Problem No nutritional problem at this time. Intervention/Recommendation Comments 1. Continue with current diet order. Avg PO intake is adequate. 2. Obtain weight if able. pt report UBW 190lb vs. CBW bedscale 235.7lb, questionable difference. Expected Outcomes/Goals Expected Outcomes/Goals 1. PO intake continue to meet at least 75% of estimated nutritional needs.
--- NOTE | 2016-12-04 03:27 | Progress Notes ---
DATE: 12/03/[address] Ramos. Case was discussed with staff of the patient, reviewed records. This is a 56-year-old female who was admitted on the 11/23/2016 because of increasing depression, suicidal ideation, feeling very depressed, has been feeling hopeless and helpless. She also has been having lack of motivation, lack of energy. She also said that she has been having voices telling her to do something, has been interacting ____ peers and others. The patient seems to be distracted, unable to make safe plan for self-care. She has been compliant with the medication with no side effects, no sedation, no nausea, no extrapyramidal symptoms and she is on Zyprexa 20 mg at bedtime, citalopram 20 mg daily and Wellbutrin ____ daily. No side effects, no sedation, no nausea, no extrapyramidal symptoms. She is still depressed, isolating, staying in bed, unpredictable and impulsive. We will continue with the patient in group therapy, milieu therapy, adjust medication as needed. JOB# [id number]
--- NOTE | 2016-12-04 15:45 | General Progress Note ---
Objective - Results Result Diagrams: 11/24/16 06:42 Recent Labs: Laboratory Last Values Sodium 140 mEq/L (136-145) 11/24/16 06:42 Potassium 3.7 mEq/L (3.5-5.1) 11/24/16 06:42 Chloride 112 mEq/L (98-107) H 11/24/16 06:42 Carbon Dioxide 26.2 mEq/L (21.0-31.0) 11/24/16 06:42 Anion Gap 5.5 (7.0-16.0) L 11/24/16 06:42 BUN 17 mg/dL (7-25) 11/24/16 06:42 Creatinine 0.8 mg/dL (0.6-1.2) 11/24/16 06:42 Est GFR ( Amer) > 60.0 ml/min (>90) 11/24/16 06:42 Est GFR (Non-Af Amer) > 60.0 ml/min 11/24/16 06:42 BUN/Creatinine Ratio 21.3 11/24/16 06:42 Glucose 103 mg/dL (70-105) 11/24/16 06:42 POC Glucose 96 MG/DL (70 - 105) 11/23/16 23:27 Calcium 10.2 mg/dL (8.6-10.3) 11/24/16 06:42 Total Bilirubin 0.6 mg/dL (0.3-1.0) 11/24/16 06:42 AST 25 U/L (13-39) 11/24/16 06:42 ALT 55 U/L (7-52) H 11/24/16 06:42 Alkaline Phosphatase 59 U/L (34-104) 11/24/16 06:42 Total Protein 6.4 gm/dL (6.0-8.3) 11/24/16 06:42 Albumin 3.9 gm/dL (3.7-5.3) 11/24/16 06:42 Globulin 2.5 gm/dL 11/24/16 06:42 Albumin/Globulin Ratio 1.6 (1.0-1.8) 11/24/16 06:42 - Physical Exam Vitals and I&O: Vital Signs Temp 98.3 F 12/04/16 06:23 Pulse 62 12/04/16 10:26 Resp 20 12/04/16 10:26 BP 126/81 12/04/16 09:14 Pulse Ox 94 12/04/16 06:23 Intake & Output 12/03/16 12/04/16 12/04/16 18:59 06:59 18:59 Intake Total 2400 120 Balance 2400 120 Intake: Oral 2400 120 Other: # Voids 4 3 # Bowel Movements 0 0 Stool Characteristics Formed Active Medications: Current Medications Acetaminophen (Tylenol) 650 mg PO Q8HR PRN PRN Reason: mild to moderate pain Stop: 01/22/17 21:26 Last Admin: 11/30/16 16:51 Dose: 650 mg Bupropion HCl (Wellbutrin) 150 mg PO DAILY SHAILESH PRN Reason: Protocol Stop: 01/27/17 08:59 Last Admin: 12/04/16 09:13 Dose: 150 mg Citalopram Hydrobromide (Celexa) 20 mg PO DAILY [facility] Stop: 01/23/17 08:59 Last Admin: 12/04/16 09:13 Dose: 20 mg Hydrochlorothiazide (Hctz) 12.5 mg PO DAILY SHAILESH Stop: 01/23/17 08:59 Last Admin: 12/04/16 09:14 Dose: 12.5 mg Lorazepam (Ativan) 0.5 mg PO Q4HR PRN; Protocol PRN Reason: Anxiety Stop: 01/22/17 21:26 Last Admin: 12/02/16 16:52 Dose: 0.5 mg Losartan Potassium (Cozaar) 50 mg PO DAILY [facility] Stop: 01/23/17 08:59 Last Admin: 12/04/16 09:13 Dose: 50 mg Magnesium Hydroxide (Milk Of Magnesia) 30 ml PO Q72HR PRN PRN Reason: Constipation Stop: 01/22/17 21:26 Nystatin (Nystop) 0 units TP BID PRN PRN Reason: REDNESS Stop: 01/29/17 17:10 Last Admin: 12/01/16 17:13 Dose: 1 units Olanzapine (Zyprexa) 20 mg PO DAILY [facility] Stop: 01/31/17 07:27 Last Admin: 12/04/16 09:13 Dose: 20 mg Assessment/Plan - Problem List Patient Problems: All Active Problems Depression (Acute) 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) - Plan Plan: as per psych as problems arise will monitor Nutritional Asmnt/Malnutr-PDOC - Dietary Evaluation Malnutrition Findings (Please click <Entered> for more info): Nutritional Asmnt/Malnutrition Start: 11/28/16 16: 18 Text: Status: Complete Freq: Document 11/28/16 16:19 GSUN (Rec: 11/28/16 16:32 [email or web address] [email or web address]) Nutritional Asmnt/Malnutrition Patient General Information Nutritional Screening Moderate Risk Screening Diagnosis Chronic paranoid schizophrenia with acute exacerbation, depressive disorder Pertinent Medical Hx/Surgical Hx Dehydration, anorexia, refusal to eat, adult failure ot thrive, acute kidney injury, HTN Subjective Information 56 year old female from home. Pt was resting in bed with blanket up to neck, unable to perform physical assessment. Pt was pleasant but appeared guarded. Pt reported allergies to seafood, FNS notified. Teeth intact, denied difficulties eating. Avg PO intake 73% of meals since adm, meeting nutritional needs. Pt reprot UBW 190lb vs bedscale CBW 235.7lb today. Pt was unsure of recent weight changes. Current Diet Order/ Nutrition Support Regular, BONNIE Pertinent Medications MOM Pertinent Labs Reviewed. Nutritional Hx/Data Height 1.73 m Height (Calculated Centimeters) 172.7 Current Weight (lbs) 106.912 kg Weight (Calculated Kilograms) 106.9 Weight (Calculated Grams) 313953.7 Usual body Weight (lbs) 190 [place] Body Weight 140 Weight Status Obese GI Symptoms Food Allergies Yes Cultural/Ethnic/Oriental Orthodox Belief Pt reported being allergic to seafood all kind, denied any other allergies. Skin Integrity/Comment: Robe 22. Skin intact. Current %PO Fair (50-74%) Estimated Nutritional Goals Calories/Kcals/Kg IBW 140lb/63.6kg due to questionable weight difference between IBW vs UBW Kcals Calculated 1590-1908kcal (25-30kcal/kg) Protein g/kg: IBW Protein Calculated 64g (1g/kg) Fluid: ml 1590-1908ml (1ml/kcal) Nutritional Problem 1. Problem Problem No nutritional problem at this time. Intervention/Recommendation Comments 1. Continue with current diet order. Avg PO intake is adequate. 2. Obtain weight if able. pt report UBW 190lb vs. CBW bedscale 235.7lb, questionable difference. Expected Outcomes/Goals Expected Outcomes/Goals 1. PO intake continue to meet at least 75% of estimated nutritional needs.
--- NOTE | 2016-12-05 08:14 | General Progress Note ---
Subjective - Review of Systems Events since last encounter: patient feeling very depressed Objective - Results Result Diagrams: 11/24/16 06:42 Recent Labs: Laboratory Last Values Sodium 140 mEq/L (136-145) 11/24/16 06:42 Potassium 3.7 mEq/L (3.5-5.1) 11/24/16 06:42 Chloride 112 mEq/L (98-107) H 11/24/16 06:42 Carbon Dioxide 26.2 mEq/L (21.0-31.0) 11/24/16 06:42 Anion Gap 5.5 (7.0-16.0) L 11/24/16 06:42 BUN 17 mg/dL (7-25) 11/24/16 06:42 Creatinine 0.8 mg/dL (0.6-1.2) 11/24/16 06:42 Est GFR ( Amer) > 60.0 ml/min (>90) 11/24/16 06:42 Est GFR (Non-Af Amer) > 60.0 ml/min 11/24/16 06:42 BUN/Creatinine Ratio 21.3 11/24/16 06:42 Glucose 103 mg/dL (70-105) 11/24/16 06:42 POC Glucose 96 MG/DL (70 - 105) 11/23/16 23:27 Calcium 10.2 mg/dL (8.6-10.3) 11/24/16 06:42 Total Bilirubin 0.6 mg/dL (0.3-1.0) 11/24/16 06:42 AST 25 U/L (13-39) 11/24/16 06:42 ALT 55 U/L (7-52) H 11/24/16 06:42 Alkaline Phosphatase 59 U/L (34-104) 11/24/16 06:42 Total Protein 6.4 gm/dL (6.0-8.3) 11/24/16 06:42 Albumin 3.9 gm/dL (3.7-5.3) 11/24/16 06:42 Globulin 2.5 gm/dL 11/24/16 06:42 Albumin/Globulin Ratio 1.6 (1.0-1.8) 11/24/16 06:42 - Physical Exam Vitals and I&O: Vital Signs Temp 98.2 F 12/05/16 05:53 Pulse 64 12/05/16 05:53 Resp 20 12/05/16 05:53 BP 119/68 12/05/16 05:53 Pulse Ox 96 12/05/16 05:53 Intake & Output 12/04/16 12/05/16 12/05/16 18:59 06:59 18:59 Intake Total 2400 120 Balance 2400 120 Intake: Oral 2400 120 Other: # Voids 4 1 # Bowel Movements 1 0 Active Medications: Current Medications Acetaminophen (Tylenol) 650 mg PO Q8HR PRN PRN Reason: mild to moderate pain Stop: 01/22/17 21:26 Last Admin: 11/30/16 16:51 Dose: 650 mg Bupropion HCl (Wellbutrin) 200 mg PO DAILY SHAILESH PRN Reason: Protocol Stop: 01/27/17 08:59 Citalopram Hydrobromide (Celexa) 20 mg PO DAILY [facility] Stop: 01/23/17 08:59 Last Admin: 12/04/16 09:13 Dose: 20 mg Hydrochlorothiazide (Hctz) 12.5 mg PO DAILY [facility]IAL[facility] Stop: 01/23/17 08:59 Last Admin: 12/04/16 09:14 Dose: 12.5 mg Lorazepam (Ativan) 0.5 mg PO Q4HR PRN; Protocol PRN Reason: Anxiety Stop: 01/22/17 21:26 Last Admin: 12/02/16 16:52 Dose: 0.5 mg Losartan Potassium (Cozaar) 50 mg PO DAILY [facility] Stop: 01/23/17 08:59 Last Admin: 12/04/16 09:13 Dose: 50 mg Magnesium Hydroxide (Milk Of Magnesia) 30 ml PO Q72HR PRN PRN Reason: Constipation Stop: 01/22/17 21:26 Nystatin (Nystop) 0 units TP BID PRN PRN Reason: REDNESS Stop: 01/29/17 17:10 Last Admin: 12/01/16 17:13 Dose: 1 units Olanzapine (Zyprexa) 20 mg PO DAILY [facility] Stop: 01/31/17 07:27 Last Admin: 12/04/16 09:13 Dose: 20 mg General: No acute distress HEENT: Atraumatic Cardiovascular: Regular rate Abdomen: Bowel sounds Assessment/Plan - Problem List Patient Problems: All Active Problems Depression (Acute) 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) - Plan Plan: as per psych as problems arise will monitor Nutritional Asmnt/Malnutr-PDOC - Dietary Evaluation Malnutrition Findings (Please click <Entered> for more info): Nutritional Asmnt/Malnutrition Start: 11/28/16 16: 18 Text: Status: Complete Freq: Document 11/28/16 16:19 GSUN (Rec: 11/28/16 16:32 GSUN [email or web address]) Nutritional Asmnt/Malnutrition Patient General Information Nutritional Screening Moderate Risk Screening Diagnosis Chronic paranoid schizophrenia with acute exacerbation, depressive disorder Pertinent Medical Hx/Surgical Hx Dehydration, anorexia, refusal to eat, adult failure ot thrive, acute kidney injury, HTN Subjective Information 56 year old female from home. Pt was resting in bed with blanket up to neck, unable to perform physical assessment. Pt was pleasant but appeared guarded. Pt reported allergies to seafood, FNS notified. Teeth intact, denied difficulties eating. Avg PO intake 73% of meals since adm, meeting nutritional needs. Pt reprot UBW 190lb vs bedscale CBW 235.7lb today. Pt was unsure of recent weight changes. Current Diet Order/ Nutrition Support Regular, BONNIE Pertinent Medications MOM Pertinent Labs Reviewed. Nutritional Hx/Data Height 1.73 m Height (Calculated Centimeters) 172.7 Current Weight (lbs) 106.912 kg Weight (Calculated Kilograms) 106.9 Weight (Calculated Grams) 416697.7 Usual body Weight (lbs) 190 [place] Body Weight 140 Weight Status Obese GI Symptoms Food Allergies Yes Cultural/Ethnic/Episcopalian Belief Pt reported being allergic to seafood all kind, denied any other allergies. Skin Integrity/Comment: Robe 22. Skin intact. Current %PO Fair (50-74%) Estimated Nutritional Goals Calories/Kcals/Kg IBW 140lb/63.6kg due to questionable weight difference between IBW vs UBW Kcals Calculated 1590-1908kcal (25-30kcal/kg) Protein g/kg: IBW Protein Calculated 64g (1g/kg) Fluid: ml 1590-1908ml (1ml/kcal) Nutritional Problem 1. Problem Problem No nutritional problem at this time. Intervention/Recommendation Comments 1. Continue with current diet order. Avg PO intake is adequate. 2. Obtain weight if able. pt report UBW 190lb vs. CBW bedscale 235.7lb, questionable difference. Expected Outcomes/Goals Expected Outcomes/Goals 1. PO intake continue to meet at least 75% of estimated nutritional needs.
--- NOTE | 2016-12-06 10:41 | General Progress Note ---
Subjective - Review of Systems Events since last encounter: patient with c/o depression no distress Objective - Results Result Diagrams: 11/24/16 06:42 Recent Labs: Laboratory Last Values Sodium 140 mEq/L (136-145) 11/24/16 06:42 Potassium 3.7 mEq/L (3.5-5.1) 11/24/16 06:42 Chloride 112 mEq/L (98-107) H 11/24/16 06:42 Carbon Dioxide 26.2 mEq/L (21.0-31.0) 11/24/16 06:42 Anion Gap 5.5 (7.0-16.0) L 11/24/16 06:42 BUN 17 mg/dL (7-25) 11/24/16 06:42 Creatinine 0.8 mg/dL (0.6-1.2) 11/24/16 06:42 Est GFR ( Amer) > 60.0 ml/min (>90) 11/24/16 06:42 Est GFR (Non-Af Amer) > 60.0 ml/min 11/24/16 06:42 BUN/Creatinine Ratio 21.3 11/24/16 06:42 Glucose 103 mg/dL (70-105) 11/24/16 06:42 POC Glucose 96 MG/DL (70 - 105) 11/23/16 23:27 Calcium 10.2 mg/dL (8.6-10.3) 11/24/16 06:42 Total Bilirubin 0.6 mg/dL (0.3-1.0) 11/24/16 06:42 AST 25 U/L (13-39) 11/24/16 06:42 ALT 55 U/L (7-52) H 11/24/16 06:42 Alkaline Phosphatase 59 U/L (34-104) 11/24/16 06:42 Total Protein 6.4 gm/dL (6.0-8.3) 11/24/16 06:42 Albumin 3.9 gm/dL (3.7-5.3) 11/24/16 06:42 Globulin 2.5 gm/dL 11/24/16 06:42 Albumin/Globulin Ratio 1.6 (1.0-1.8) 11/24/16 06:42 - Physical Exam Vitals and I&O: Vital Signs Temp 98.4 F 12/05/16 14:00 Pulse 76 12/06/16 08:39 Resp 19 12/05/16 14:00 BP 125/78 12/06/16 08:39 Pulse Ox 99 12/05/16 14:00 Intake & Output 12/05/16 12/06/16 12/06/16 18:59 06:59 18:59 Intake Total 1100 Balance 1100 Weight (lbs) 107.547 kg Intake: Oral 1100 Other: # Voids 4 # Bowel Movements 1 Active Medications: Current Medications Acetaminophen (Tylenol) 650 mg PO Q8HR PRN PRN Reason: mild to moderate pain Stop: 01/22/17 21:26 Last Admin: 11/30/16 16:51 Dose: 650 mg Bupropion HCl (Wellbutrin) 200 mg PO DAILY SHAILESH PRN Reason: Protocol Stop: 01/27/17 08:59 Last Admin: 12/06/16 08:38 Dose: 200 mg Citalopram Hydrobromide (Celexa) 20 mg PO DAILY SHAILESH Stop: 01/23/17 08:59 Last Admin: 12/06/16 08:38 Dose: 20 mg Hydrochlorothiazide (Hctz) 12.5 mg PO DAILY SHAILESH Stop: 01/23/17 08:59 Last Admin: 12/06/16 08:39 Dose: 12.5 mg Lorazepam (Ativan) 0.5 mg PO Q4HR PRN; Protocol PRN Reason: Anxiety Stop: 01/22/17 21:26 Last Admin: 12/02/16 16:52 Dose: 0.5 mg Losartan Potassium (Cozaar) 50 mg PO DAILY SHAILESH Stop: 01/23/17 08:59 Last Admin: 12/06/16 08:39 Dose: 50 mg Magnesium Hydroxide (Milk Of Magnesia) 30 ml PO Q72HR PRN PRN Reason: Constipation Stop: 01/22/17 21:26 Nystatin (Nystop) 0 units TP BID PRN PRN Reason: REDNESS Stop: 01/29/17 17:10 Last Admin: 12/01/16 17:13 Dose: 1 units Olanzapine (Zyprexa) 20 mg PO DAILY [facility]AILESH Stop: 02/04/17 08:59 Last Admin: 12/06/16 08:38 Dose: 20 mg General: No acute distress HEENT: Atraumatic Cardiovascular: Regular rate Abdomen: Bowel sounds Assessment/Plan - Problem List Patient Problems: All Active Problems Depression (Acute) 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) - Plan Plan: as per psych as problems arise will monitor Nutritional Asmnt/Malnutr-PDOC - Dietary Evaluation Malnutrition Findings (Please click <Entered> for more info): Nutritional Asmnt/Malnutrition Start: 11/28/16 16: 18 Text: Status: Complete Freq: Document 11/28/16 16:19 GSUN (Rec: 11/28/16 16:32 GSUN [email or web address]) Nutritional Asmnt/Malnutrition Patient General Information Nutritional Screening Moderate Risk Screening Diagnosis Chronic paranoid schizophrenia with acute exacerbation, depressive disorder Pertinent Medical Hx/Surgical Hx Dehydration, anorexia, refusal to eat, adult failure ot thrive, acute kidney injury, HTN Subjective Information 56 year old female from home. Pt was resting in bed with blanket up to neck, unable to perform physical assessment. Pt was pleasant but appeared guarded. Pt reported allergies to seafood, FNS notified. Teeth intact, denied difficulties eating. Avg PO intake 73% of meals since adm, meeting nutritional needs. Pt reprot UBW 190lb vs bedscale CBW 235.7lb today. Pt was unsure of recent weight changes. Current Diet Order/ Nutrition Support Regular, BONNIE Pertinent Medications MOM Pertinent Labs Reviewed. Nutritional Hx/Data Height 1.73 m Height (Calculated Centimeters) 172.7 Current Weight (lbs) 106.912 kg Weight (Calculated Kilograms) 106.9 Weight (Calculated Grams) 915331.7 Usual body Weight (lbs) 190 [place] Body Weight 140 Weight Status Obese GI Symptoms Food Allergies Yes Cultural/Ethnic/Sabianist Belief Pt reported being allergic to seafood all kind, denied any other allergies. Skin Integrity/Comment: Robe 22. Skin intact. Current %PO Fair (50-74%) Estimated Nutritional Goals Calories/Kcals/Kg IBW 140lb/63.6kg due to questionable weight difference between IBW vs UBW Kcals Calculated 1590-1908kcal (25-30kcal/kg) Protein g/kg: IBW Protein Calculated 64g (1g/kg) Fluid: ml 1590-1908ml (1ml/kcal) Nutritional Problem 1. Problem Problem No nutritional problem at this time. Intervention/Recommendation Comments 1. Continue with current diet order. Avg PO intake is adequate. 2. Obtain weight if able. pt report UBW 190lb vs. CBW bedscale 235.7lb, questionable difference. Expected Outcomes/Goals Expected Outcomes/Goals 1. PO intake continue to meet at least 75% of estimated nutritional needs.
[2016-12-06] MEDS: NYSTATIN 100000 UNITS/GM POWD TP PRN (19:10)
--- NOTE | 2016-12-07 09:58 | General Progress Note ---
Subjective - Review of Systems Events since last encounter: no distress Objective - Results Result Diagrams: 11/24/16 06:42 Recent Labs: Laboratory Last Values Sodium 140 mEq/L (136-145) 11/24/16 06:42 Potassium 3.7 mEq/L (3.5-5.1) 11/24/16 06:42 Chloride 112 mEq/L (98-107) H 11/24/16 06:42 Carbon Dioxide 26.2 mEq/L (21.0-31.0) 11/24/16 06:42 Anion Gap 5.5 (7.0-16.0) L 11/24/16 06:42 BUN 17 mg/dL (7-25) 11/24/16 06:42 Creatinine 0.8 mg/dL (0.6-1.2) 11/24/16 06:42 Est GFR ( Amer) > 60.0 ml/min (>90) 11/24/16 06:42 Est GFR (Non-Af Amer) > 60.0 ml/min 11/24/16 06:42 BUN/Creatinine Ratio 21.3 11/24/16 06:42 Glucose 103 mg/dL (70-105) 11/24/16 06:42 POC Glucose 96 MG/DL (70 - 105) 11/23/16 23:27 Calcium 10.2 mg/dL (8.6-10.3) 11/24/16 06:42 Total Bilirubin 0.6 mg/dL (0.3-1.0) 11/24/16 06:42 AST 25 U/L (13-39) 11/24/16 06:42 ALT 55 U/L (7-52) H 11/24/16 06:42 Alkaline Phosphatase 59 U/L (34-104) 11/24/16 06:42 Total Protein 6.4 gm/dL (6.0-8.3) 11/24/16 06:42 Albumin 3.9 gm/dL (3.7-5.3) 11/24/16 06:42 Globulin 2.5 gm/dL 11/24/16 06:42 Albumin/Globulin Ratio 1.6 (1.0-1.8) 11/24/16 06:42 - Physical Exam Vitals and I&O: Vital Signs Temp 97.8 F 06/30/17 06:57 Pulse 64 12/07/16 09:14 Resp 18 12/07/16 06:57 BP 117/68 12/07/16 09:14 Pulse Ox 97 12/07/16 06:57 Intake & Output 12/06/16 12/07/16 12/07/16 18:59 06:59 18:59 Other: # Voids 1 Active Medications: Current Medications Acetaminophen (Tylenol) 650 mg PO Q8HR PRN PRN Reason: mild to moderate pain Stop: 01/22/17 21:26 Last Admin: 11/30/16 16:51 Dose: 650 mg Bupropion HCl (Wellbutrin) 200 mg PO DAILY SHAILESH PRN Reason: Protocol Stop: 01/27/17 08:59 Last Admin: 12/07/16 09:10 Dose: 200 mg Citalopram Hydrobromide (Celexa) 20 mg PO DAILY [facility] Stop: 01/23/17 08:59 Last Admin: 12/07/16 09:11 Dose: 20 mg Hydrochlorothiazide (Hctz) 12.5 mg PO DAILY [facility]AILESH Stop: 01/23/17 08:59 Last Admin: 12/07/16 09:11 Dose: 12.5 mg Lorazepam (Ativan) 0.5 mg PO Q4HR PRN; Protocol PRN Reason: Anxiety Stop: 01/22/17 21:26 Last Admin: 12/06/16 21:28 Dose: 0.5 mg Losartan Potassium (Cozaar) 50 mg PO DAILY [facility] Stop: 01/23/17 08:59 Last Admin: 12/07/16 09:14 Dose: 50 mg Magnesium Hydroxide (Milk Of Magnesia) 30 ml PO Q72HR PRN PRN Reason: Constipation Stop: 01/22/17 21:26 Nystatin (Nystop) 0 units TP BID PRN PRN Reason: REDNESS Stop: 01/29/17 17:10 Last Admin: 12/06/16 19:10 Dose: 1 units Olanzapine (Zyprexa) 20 mg PO DAILY [facility] Stop: 02/04/17 08:59 Last Admin: 12/07/16 09:11 Dose: 20 mg Zolpidem Tartrate (Ambien) 5 mg PO HS PRN PRN Reason: Insomnia Stop: 02/04/17 21:59 General: No acute distress Neck: Supple Cardiovascular: Regular rate Abdomen: Bowel sounds Assessment/Plan - Problem List Patient Problems: All Active Problems Depression (Acute) 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) - Plan Plan: as per psych as problems arise will monitor Nutritional Asmnt/Malnutr-PDOC - Dietary Evaluation Malnutrition Findings (Please click <Entered> for more info): Nutritional Asmnt/Malnutrition Start: 11/28/16 16: 18 Text: Status: Complete Freq: Document 11/28/16 16:19 GSUN (Rec: 11/28/16 16:32 GSUN [email or web address]) Nutritional Asmnt/Malnutrition Patient General Information Nutritional Screening Moderate Risk Screening Diagnosis Chronic paranoid schizophrenia with acute exacerbation, depressive disorder Pertinent Medical Hx/Surgical Hx Dehydration, anorexia, refusal to eat, adult failure ot thrive, acute kidney injury, HTN Subjective Information 56 year old female from home. Pt was resting in bed with blanket up to neck, unable to perform physical assessment. Pt was pleasant but appeared guarded. Pt reported allergies to seafood, FNS notified. Teeth intact, denied difficulties eating. Avg PO intake 73% of meals since adm, meeting nutritional needs. Pt reprot UBW 190lb vs bedscale CBW 235.7lb today. Pt was unsure of recent weight changes. Current Diet Order/ Nutrition Support Regular, BONNIE Pertinent Medications MOM Pertinent Labs Reviewed. Nutritional Hx/Data Height 1.73 m Height (Calculated Centimeters) 172.7 Current Weight (lbs) 106.912 kg Weight (Calculated Kilograms) 106.9 Weight (Calculated Grams) 554428.7 Usual body Weight (lbs) 190 [place] Body Weight 140 Weight Status Obese GI Symptoms Food Allergies Yes Cultural/Ethnic/Yazidism Belief Pt reported being allergic to seafood all kind, denied any other allergies. Skin Integrity/Comment: Robe [place]. Skin intact. Current %PO Fair (50-74%) Estimated Nutritional Goals Calories/Kcals/Kg IBW 140lb/63.6kg due to questionable weight difference between IBW vs UBW Kcals Calculated 1590-1908kcal (25-30kcal/kg) Protein g/kg: IBW Protein Calculated 64g (1g/kg) Fluid: ml 1590-1908ml (1ml/kcal) Nutritional Problem 1. Problem Problem No nutritional problem at this time. Intervention/Recommendation Comments 1. Continue with current diet order. Avg PO intake is adequate. 2. Obtain weight if able. pt report UBW 190lb vs. CBW bedscale 235.7lb, questionable difference. Expected Outcomes/Goals Expected Outcomes/Goals 1. PO intake continue to meet at least 75% of estimated nutritional needs.
[2016-12-07] MEDS: NYSTATIN 100000 UNITS/GM POWD TP PRN (15:06)
== END 2016-12-07 16:40 | disposition home or self-care (01) | DRG 885 ==
LOC: GERO 18:25
PROVIDERS: ADMIT Psychiatry & Neurology Psychiatry; ATTEND Psychiatry & Neurology Psychiatry
DX: F20.0 Paranoid schizophrenia (principal); F29 Unspecified psychosis not due to a substance or known physiological condition; R45.851 Suicidal ideations; I10 Essential (primary) hypertension; F32.9 Major depressive disorder, single episode, unspecified; R62.7 Adult failure to thrive; F41.9 Anxiety disorder, unspecified; Z88.5 Allergy status to narcotic agent
CPT/HCPCS: 36415-UA; 71010-TC; 80053-TC; 82948-90; 90899; G0410; J7051; Z7610